=== PATIENT | male | born 1955 | race African-American/Black ===

== ENCOUNTER 2021-06-28 13:14 | Emergency (ER) | payer MEDICARE ==
[~2021-06-28] VITALS: Ht 175.3 cm; Wt 79.0 kg
[2021-06-28] MEDS ORDERED: IV NORMAL SALINE 1000ML BAG 1,000 ML IV ONE (18:00)
--- NOTE | 2021-06-28 18:06 | PHYS DOC ---
Past Medical History Past Medical History: Other Additional Past Medical Histor: HEPATITIS C (ANEL ANN PRINT LINE INSPECTOR) Past Surgical History: No Surgical History (ANEL ANN PRINT LINE INSPECTOR) Smoking Status: Never Smoker Alcohol Use: None Drug Use: None (ANEL ANN PRINT LINE INSPECTOR) General Adult EDM: Chief Complaint: OTHER COMPLAINTS HPI: HPI: Patient is a 65 year old male patient with no significant medical history presenting today complaining of an 8 out of 10 diffuse cramping abdominal pain, symptoms began 3 days ago. Patient denies any nausea, vomiting, diarrhea. He states he has poor appetite and has not eaten anything for 3 days. Denies any chest pain, shortness of breath. Denies any fever, coughing or congestion. Denies any use of alcohol. Reports use of marijuana. He states this pain began after using marijuana (ANEL ANN PRINT LINE INSPECTOR) Review of Systems: Review of Systems: Constitutional: Denies fever or chills. [] Eyes: Denies change in visual acuity. [] HENT: Denies nasal congestion or sore throat. [] Respiratory: Denies cough or shortness of breath. [] Cardiovascular: Denies chest pain or edema. [] GI: Reports abdominal pain with poor appetite, denies nausea, vomiting, bloody stools or diarrhea. [] : Denies dysuria. [] Musculoskeletal: Denies back pain or joint pain. [] Integument: Denies rash. [] Neurologic: Denies headache, focal weakness or sensory changes. [] Psychiatric: Denies depression or anxiety. [] (ANEL ANN PRINT LINE INSPECTOR) Heart Score: C/O Chest Pain: N/A Risk Factors: Risk Factors: DM, Current or recent (<one month) smoker, HTN, HLP, family history of CAD, obesity. Risk Scores: Score 0 - 3: 2.5% MACE over next 6 weeks - Discharge Home Score 4 - 6: 20.3% MACE over next 6 weeks - Admit for Clinical Observation Score 7 - 10: 72.7% MACE over next 6 weeks - Early Invasive Strategies (ANEL ANN PRINT LINE INSPECTOR) Current Medications: Current Medications Medications (Trade) Dose Ordered Sig/Bel Start Time Stop Time Status Last Admin Dose Admin Famotidine (Pepcid Vial) 20 mg 1X ONCE 06/28/21 18:00 06/28/21 18:01 UNV Ketorolac Tromethamine (Toradol 15mg Vial) 15 mg 1X ONCE 06/28/21 18:00 06/28/21 18:01 UNV Sodium Chloride 1,000 ml @ 1,000 mls/hr 1X ONCE 06/28/21 18:00 06/28/21 18:59 UNV (ANEL ANN [employer]INT LINE INSPECTOR) Allergies: Allergies: Allergies Coded Allergies Type Severity Reaction Last Updated Verified No Known Drug Allergies 06/28/21 No (ANEL ANN [employer]INT LINE INSPECTOR) Physical Exam: PE: Constitutional: Well developed, well nourished, no acute distress, non-toxic appearance. [] HENT: Normocephalic, atraumatic, bilateral external ears normal, oropharynx moist, no oral exudates, nose normal. [] Eyes: PERRLA, EOMI, conjunctiva normal, no discharge. [] Neck: Normal range of motion, no tenderness, supple, no stridor. [] Cardiovascular:Heart rate regular rhythm, no murmur [] Lungs & Thorax: Bilateral breath sounds clear to auscultation [] Abdomen: Bowel sounds normal, soft, no tenderness, no masses, no pulsatile masses. [] Skin: Patches of vitiligo throughout his skin Back: No tenderness, no CVA tenderness. [] Extremities: No tenderness, no cyanosis, no clubbing, ROM intact, no edema. [] Neurologic: Alert and oriented X 3, normal motor function, normal sensory function, no focal deficits noted. [] Psychologic: Affect normal, judgement normal, mood normal. [] (ANEL ANN Mario PRINT LINE INSPECTOR) Current Patient Data: Vital Signs: Vital Signs Date Time Temp Pulse Resp B/P (MAP) Pulse Ox O2 Delivery O2 Flow Rate FiO2 06/28/21 17:50 98.7 96 16 142/87 (105) 99 Room Air 98.7 (ANEL ANN [employer]INT LINE INSPECTOR) EKG: EKG: [] (ANEL ANN Mario PRINT LINE INSPECTOR) Radiology/Procedures: Radiology/Procedures: []PROCEDURE: CT ABDOMEN PELVIS WO CONTRAST EXAMINATION: CT abdomen and pelvis without IV contrast. INDICATION:65 years, Male, abdominal pain blood in urine. TECHNIQUE: Axial CT images of the abdomen and pelvis were obtained. Coronal and sagittal reformatted performed. COMPARISON: None. Exposure: One or more of the following individualized dose reduction techniques were utilized for this examination: 1. Automated exposure control 2. Adjustment of the mA and/or kV according to patient size 3. Use of iterative reconstruction technique. FINDINGS: LOWER CHEST: Bibasilar scarring and/or atelectasis with scattered patchy groundglass opacities. Heart size is normal. ABDOMEN/PELVIS: Evaluation of the solid visceral structures is limited without IV contrast. Liver is normal in size and attenuation. There is a 4 mm subcapsular hypoattenuating area in the right hepatic lobe, too small to characterize. There are scattered calcified granulomas. Gallbladder is normal. No biliary ductal dilation. Calcified granulomas seen throughout the otherwise unremarkable spleen. The adrenals are unremarkable. The pancreas is incompletely evaluated without IV contrast but appears grossly unremarkable. Hypoattenuating subcentimeter focus in the inferior pole the right kidney, too small to characterize. Kidneys are symmetric in shape with no perinephric inflammation. N o nephrolithiasis or hydroureteronephrosis. Small hiatal hernia. Stomach is decompressed. Evaluation of the bowel wall is limited without oral contrast. There is hyperattenuating intraluminal material within the proximal colon to the level of the distal transverse colon may represent hyperattenuating ingested material. Small bowel is grossly unremarkable. Appendix is within normal limits. There is a 5.6 x 4.7 cm circumscribed area in the distal sigmoid colon as seen on axial image 56 and coronal image 22. The attenuation is less than soft tissue with a few foci of gas. This may represent a focal stool ball,or possible malignancy. No free intra-abdominal air or free fluid. No definite pathologically enlarged abdominal or pelvic lymph nodes. [id number] aortobiiliac atherosclerotic disease. Urinary bladder is unremarkable. The prostate gland is enlarged with scattered internal calcifications. Nonobstructed segment of small bowel extending into the right inguinal canal. Possible small bilateral hydroceles. Multilevel degenerative changes with no evidence of acute or suspicious osseous abnormalities. IMPRESSION: 1. Indeterminate circumscribed intraluminal area in the distal sigmoid without bowel obstruction. This may represent a focal stool ball and/or malignancy. Recommend follow up with GI for further evaluation with colonoscopy. 2. Indeterminate hyperattenuating feculent colonic material mostly in the proximal colon also to the level of the distal transverse colon. This may be from ingested material, GI Bleed is not excluded. Advise clinical correlation. 3. Kidneys, ureters and bladder are unremarkable. Prostate gland is enlarged, recommend correlation with PSA. 4. Indeterminate subcentimeter focus in the right hepatic lobe. Correlation with prior imaging if available, otherwise further evaluation with nonemergent MRI with IV contrast is recommended. 5. Scattered patchy groundglass opacities in the lower lobes may represent atelectasis or developing pneumonia. Electronically signed by: Omega Light DO (06/28/2021 8:53 PM) [facility] DICTATED and SIGNED BY: OMEGA LIGHT DO DATE: 06/28/[id number] 0 (ANEL ANN PRINT LINE INSPECTOR) Course & Med Decision Making: Course & Med Decision Making Pertinent Labs and Imaging studies reviewed. (See chart for details) This is a 65-year-old male patient presenting to the ED today complaining of generalized abdominal pain, poor appetite, symptoms for 3 days. CBC, CMP lipase with no acute findings. UA negative for infection, noted for moderate amount of blood and 6-10 WBCs otherwise no infection. CT of the abdomen and pelvis noted for indeterminate circumscribed intraluminal area in the distal sigmoid without bowel obstruction. This may represent a focal stool ball and/or malignancy. Recommend follow up with GI for further evaluation with colonoscopy. Indeterminate hyperattenuating feculent colonic material mostly in the proximal colon also to the level of the distal transverse colon. This may be from ingested material, GI Bleed is not excluded. Advise clinical correlation.Kidneys, ureters and bladder are unremarkable. Prostate gland is enlarged, recommend correlation with PSA. Indeterminate subcentimeter focus in the right hepatic lobe. Correlation with prior imaging if available, otherwise further evaluation with nonemergent MRI with IV contrast is recommended.Scattered patchy groundglass opacities in the lower lobes may represent atelectasis or developing pneumonia. Negative rapid Covid test. Consulted with Dr. Maldonado. Patient will be discharged to home with azithromycin and follow-up with GI (ANEL ANN PRINT LINE INSPECTOR) Dragon Disclaimer: Dragon Disclaimer: This electronic medical record was generated, in whole or in part, using a voice recognition dictation system. (ANEL ANN PRINT LINE INSPECTOR) Departure Departure Impression: Primary Impression: Abdominal pain Qualified Codes: R10.84 - Generalized abdominal pain Additional Impressions: Bilateral pneumonia Qualified Codes: J18.9 - Pneumonia, unspecified organism BPH (benign prostatic hyperplasia) Qualified Codes: N40.0 - Benign prostatic hyperplasia without lower urinary tract symptoms Disposition: 01 HOME / SELF CARE / HOMELESS Condition: STABLE Referrals: NO PCP (PCP) SEEMA SEGOVIA DO follow up for enlarged prostate KORTNEY SHELL MD follow up in 1 week Patient Instructions: Abdominal Pain, Pneumonia, Adult, [id number] Additional Instructions: You were evaluated in the emergency room, your CT of the abdomen and pelvis was concerning for a possible mass in your colon. Please follow-up with the provided pill machine operator for colonoscopy. You also noted to have enlarged prostate. Please follow-up with the provided urologist in 1-2 weeks. You also have Covid pneumonia on CT. Take the prescribed antibiotics until completed Scripts Hydrocodone Bit/Acetaminophen (HYDROCODONE-APAP 5-325 ) 1 Tab Tablet 1 TAB PO PRN Q6HRS PRN for PAIN, #14 TAB 0 Refills Prov: ANEL ANN APRN 06/28/21 Dicyclomine Hcl (DICYCLOMINE HCL) 20 Mg Tablet 1 TAB PO TID, #30 TAB 1 Refill Prov: ANEL ANN APRN 06/28/21 Azithromycin (AZITHROMYCIN TABLET) 250 Mg Tablet 1 PKG PO UD for 5 Days, #6 TAB 0 Refills 2 the first day followed by 1 for days 2-5 Prov: ANEL ANN APRN 06/28/21 Attending Signature Attending Signature I have reviewed the PA/CORRECTIVE THERAPY AIDE TEACHER's note and plan of care. I was available for consultation as needed during the patient's visit in the emergency department. I agree with the clinical impression, plan, and disposition. (DAMARI MALDONADO DO) ANEL ANN APRN Jun 28, 2021 18:06 DAMARI MALDONADO DO Jun 29, 2021 00:30
[2021-06-28] MEDS ORDERED: FAMOTIDINE 20 MG/2 ML VIAL IVP ONE (18:15)
[2021-06-28] MEDS ORDERED: KETOROLAC 30 MG/ML VIAL. IVP ONE (18:15)
[2021-06-28 18:26] LABS: BILIRUBIN,URINE NEGATIVE (NEG); CLARITY,URINE CLEAR; COLOR,URINE YELLOW; NITRITE,URINE NEGATIVE (NEG); PROTEIN,URINE 100 mg/dL (NEG-TRACE); UROBILINOGEN,URINE 0.2 mg/dL (0.2 mg/dL)
[2021-06-28 18:28] LABS: BASO % 1 % (0-3); EOS % 0 % (0-3); HEMATOCRIT 43.3 % (39.0-53.0); HEMOGLOBIN 15.2 g/dL (13.0-17.5); LYMPH # 0.6 x10^3/uL (1.0-4.8); LYMPH % 11 % (24-48); MEAN CORPUSCULAR HEMOGLOBIN 30 pg (25-35); MEAN CORPUSCULAR HGB CONC 35 g/dL (31-37); MEAN CORPUSCULAR VOLUME 86 fL (79-100); MONO # 0.4 x10^3/uL (0.0-1.1); MONO % 7 % (0-9); NEUT # 4.5 x10^3/uL (1.8-7.7); NEUT % 81 % (31-73); PLATELET COUNT 128 x10^3/uL (140-400); RED BLOOD COUNT 5.01 x10^6/uL (4.30-5.70); RED CELL DISTRIBUTION WIDTH 14.8 % (11.5-14.5); WHITE BLOOD COUNT 5.5 x10^3/uL (4.0-11.0)
[2021-06-28 18:33] LABS: BARBITURATES NEG (NEG); BENZODIAZEPINES NEG (NEG); CANNABINOIDS POS (NEG); COCAINE NEG (NEG); METHADONE NEG (NEG); OPIATES POS (NEG); PHENCYCLIDINE NEG (NEG)
[2021-06-28 18:34] LABS: AMPHETAMINE/METHAMPHETAMINE NEG (NEG)
[2021-06-28 18:37] LABS: WBC,URINE OCC /HPF (0-4)
[2021-06-28 18:37] LABS: CALCIUM 8.2 mg/dL (8.5-10.1); CREATININE 0.9 mg/dL (0.7-1.3); GFR 101.8; POTASSIUM 3.8 mmol/L (3.5-5.1)
[2021-06-28 18:38] LABS: BACTERIA,URINE FEW /HPF (0-FEW)
[2021-06-28 18:43] LABS: ALBUMIN 3.4 g/dL (3.4-5.0); ALBUMIN/GLOBULIN RATIO 0.7 (1.0-1.7); TOTAL BILIRUBIN 0.4 mg/dL (0.2-1.0); TOTAL PROTEIN 8.2 g/dL (6.4-8.2)
[2021-06-28] MEDS ORDERED: fentaNYL PF VIAL 100 MCG/2 ML VIAL IVP ONE (19:30)
[2021-06-28] MEDS ORDERED: LIDO:MAALOX 1:1 20 ML SINGLE DOSE. SWSW ONE (19:30)
--- NOTE | 2021-06-28 20:56 | RAD ---
EXAMINATION: CT abdomen and pelvis without IV contrast. INDICATION:65 years, Male, abdominal pain blood in urine. TECHNIQUE: Axial CT images of the abdomen and pelvis were obtained. Coronal and sagittal reformatted performed. COMPARISON: None. Exposure: One or more of the following individualized dose reduction techniques were utilized for thi s examination: 1. Automated exposure control 2. Adjustment of the mA and/or kV according to patient size 3. Use of iterative reconstruction technique. FINDINGS: LOWER CHEST: Bibasilar scarring and/or atelectasis with scattered patchy groundglass opacities. Heart size is norm al. ABDOMEN/PELVIS: Evaluation of the solid visceral structures is limited without IV contrast. Liver is normal in size a nd attenuation. There is a 4 mm subcapsular hypoattenuating area in the right hepatic lobe, too small to characterize. There are scattered calcified granulomas. Gallbladder is normal. No biliary ductal dilation. Calcified granulomas seen throughout the otherwise unremarkable spleen. The adrenals are un remarkable. The pancreas is incompletely evaluated without IV contrast but appears grossly unremarkab le. Hypoattenuating subcentimeter focus in the inferior pole the right kidney, too small to character ize. Kidneys are symmetric in shape with no perinephric inflammation. No nephrolithiasis or hydrouret eronephrosis. Small hiatal hernia. Stomach is decompressed. Evaluation of the bowel wall is limited without oral co ntrast. There is hyperattenuating intraluminal material within the proximal colon to the level of the distal transverse colon may represent hyperattenuating ingested material. Small bowel is grossly unr emarkable. Appendix is within normal limits. There is a 5.6 x 4.7 cm circumscribed area in the distal sigmoid colon as seen on axial image 56 and coronal image 22. The attenuation is less than soft tiss ue with a few foci of gas. This may represent a focal stool ball,or possible malignancy. No free intr a-abdominal air or free fluid. No definite pathologically enlarged abdominal or pelvic lymph nodes. M [id number] aortobiiliac atherosclerotic disease. Urinary bladder is unremarkable. The prostate g land is enlarged with scattered internal calcifications. Nonobstructed segment of small bowel extending into the right inguinal canal. Possible small bilatera l hydroceles. Multilevel degenerative changes with no evidence of acute or suspicious osseous abnormalities. IMPRESSION: 1. Indeterminate circumscribed intraluminal area in the distal sigmoid without bowel obstruction. Thi s may represent a focal stool ball and/or malignancy. Recommend follow up with GI for further evaluat ion with colonoscopy. 2. Indeterminate hyperattenuating feculent colonic material mostly in the proximal colon also to the level of the distal transverse colon. This may be from ingested material, GI Bleed is not excluded. A dvise clinical correlation. 3. Kidneys, ureters and bladder are unremarkable. Prostate gland is enlarged, recommend correlation w ith PSA. 4. Indeterminate subcentimeter focus in the right hepatic lobe. Correlation with prior imaging if adriane ilable, otherwise further evaluation with nonemergent MRI with IV contrast is recommended. 5. Scattered patchy groundglass opacities in the lower lobes may represent atelectasis or developing pneumonia. Electronically signed by: William Light DO (06/28/2021 8:53 PM) [facility]
[2021-06-28] MEDS ORDERED: DICY20TA PO (21:15)
[2021-06-28] MEDS ORDERED: AZIT250T6 PO (21:15)
[2021-06-28] MEDS ORDERED: HYDR-2761 PO (21:15)
[2021-06-28 21:30] VITALS: BP 156/95
--- NOTE | 2021-06-30 16:13 | NUR ---
IP: Informed pt of positive covid test and the need to quarantine for 10 days. Pt verbalized understanding.
== END 2021-06-28 21:55 | disposition home or self-care (01) ==
LOC: ER 13:14
DX: U07.1 COVID-19 (principal); N40.0 Benign prostatic hyperplasia without lower urinary tract symptoms; J18.9 Pneumonia, unspecified organism
CPT/HCPCS: 36415; 74176; 80053; 80307; 81001; 83690; 85025; 87426; 96361; 96374; 96375; 99285; G0480; J1885; J3010; J3490; J7030; U0003; U0005